=== PATIENT | female | born 1995 | race African-American/Black ===

== ENCOUNTER 2018-11-25 11:12 | Emergency (ER) | payer MEDICAID ==
[~2018-11-25] VITALS: Ht 165.1 cm; Wt 63.6 kg
[2018-11-25 11:20] VITALS: Ht 165.1 cm; Wt 63.6 kg
[2018-11-25 11:49] LABS: BASOPHILS 0.3 % (0-2); EOSINOPHILS 0.6 % (0-7); HEMATOCRIT 36.5 % (36.0-48.0); LYMPHOCYTES 42.6 % (15-50); MCH 30.6 pg (26.0-34.0); MCHC 38.4 g/dL (31.0-37.0); MCV 79.7 fL (80.0-100.0); NEUTROPHILS 50.5 % (40-80); PLATELET COUNT 266 10x3/uL (130-400); RBC 4.58 10x6/uL (4.00-5.40); RDW 13.9 % (11.5-14.5); WBC 6.8 10x3/uL (4.8-10.8)
[2018-11-25 12:05] LABS: ALBUMIN 3.8 g/dL (3.4-5.0); ALKALINE PHOSPHATASE 46 U/L (46-116); ALT (SGPT) 13 U/L (10-68); BILIRUBIN - TOTAL 0.66 mg/dL (0.2-1.3); CALC OSMOLALITY 274 mosm/kg (275-300); CALCIUM 8.8 mg/dL (8.5-10.1); CARBON DIOXIDE 25.6 mmol/L (21.0-32.0); CHLORIDE - SERUM 105 mmol/L (98-107); CREATININE - SERUM 0.7 mg/dL (0.6-1.3); GLUCOSE 90 mg/dL (74-106); POTASSIUM - SERUM 3.8 mmol/L (3.5-5.1); PROTEIN - SERUM 7.1 g/dL (6.4-8.2); SODIUM 138 mmol/L (136-145); UREA NITROGEN 10 mg/dL (7-18); eGFR NON AFRICAN AMERICAN > 90 mL/min (90-120)
[2018-11-25 12:06] LABS: APTT 32.2 SECONDS (22.8-39.4); INR 1.07 (0.85-1.17); PROTIME 13.4 SECONDS (11.6-15.0)
[2018-11-25 12:07] LABS: D-DIMER-QUANTITATIVE 0.41 ug/mLFEU (0.20-0.54)
[2018-11-25 12:18] LABS: CKMB 0.4 U/L (0.0-3.6); CREATINE KINASE 127 UL (21-215); MAGNESIUM - SERUM 1.7 mg/dL (1.8-2.4); TROPONIN-I < 0.017 ng/mL (0.000-0.060)
[2018-11-25] MEDS ORDERED: TORADOL10 MG PO (12:36)
[2018-11-25 13:06] VITALS: BP 117/64
== END 2018-11-25 13:05 | disposition home or self-care (01) ==
LOC: D.ER 11:12
PROVIDERS: Family Medicine
DX: R07.81 Pleurodynia (principal)

== ENCOUNTER 2019-01-26 20:07 | Emergency (ER) | payer MEDICAID ==
[~2019-01-26] VITALS: Ht 165.1 cm; Wt 65.0 kg
[~2019-01-26 20:07] MED LIST: TORADOL10 MG PO
[2019-01-26 20:12] VITALS: Ht 165.1 cm; Wt 65.0 kg
[2019-01-26] MEDS ORDERED: KEFLEX500 MG PO (20:33)
[2019-01-26] MEDS ORDERED: FEXOFENADINE H180 MG PO (20:33)
[2019-01-26 21:51] VITALS: BP 124/68
== END 2019-01-26 21:12 | disposition home or self-care (01) ==
LOC: D.ER 20:07
DX: J01.90 Acute sinusitis, unspecified (principal)

== ENCOUNTER 2019-05-29 07:50 | Emergency (ER) | payer MEDICAID ==
[~2019-05-29] VITALS: Ht 165.1 cm; Wt 64.1 kg
[~2019-05-29 07:50] MED LIST changes: +FEXOFENADINE H180 MG PO; +KEFLEX500 MG PO
[2019-05-29 08:05] VITALS: BP 97/74; Ht 165.1 cm; Wt 64.1 kg
[2019-05-29] MEDS ORDERED: AUGMENTIN 875-11 TAB PO (08:32)
[2019-05-29] MEDS ORDERED: FLUTICASONE PRO16 GM NASAL (08:32)
== END 2019-05-29 08:44 | disposition home or self-care (01) ==
LOC: D.ER 07:50
DX: J01.90 Acute sinusitis, unspecified (principal)